=== PATIENT | female | born 1985 | race Caucasian/White ===

== ENCOUNTER 2016-12-31 11:02 | Day surgery (SDC) | payer OTHER ==
[~2016-12-31] VITALS: Ht 162.6 cm; Wt 67.0 kg
[~2016-12-31 11:02] MED LIST: NONE PER PT
[2016-12-31 11:38] VITALS: BP 99/64
[2016-12-31] MEDS ORDERED: LACTATED RINGERS 1,000 ML IV SCH (11:40)
[2016-12-31] MEDS ORDERED: PRENATAL VITAMINS (12:00)
[2016-12-31] MEDS ORDERED: OXYTOCIN 10 UNITS/ML, 1ML ONE (12:37)
[2016-12-31] MEDS ORDERED: SILVER NITRATE STICK TP ONE (12:38)
[2016-12-31] MEDS ORDERED: MISOPROSTOL 200 MCG TABLET ONE (12:38)
[2016-12-31] MEDS ORDERED: BUPIVACAINE/PF-EPI 0.25% 1:200K ONE (12:38)
[2016-12-31] MEDS ORDERED: METHYLERGONOVINE 0.2 MG/ML IM ONE (12:38)
[2016-12-31] MEDS ORDERED: MIDAZOLAM 1 MG/ML, 2ML ONE ×2 (12:45)
[2016-12-31] MEDS ORDERED: FENTANYL PF 100 MCG/2ML ONE ×2 (12:45)
[2016-12-31] MEDS ORDERED: DEXAMETHASONE 4 MG/ML, 1ML ONE (12:56)
[2016-12-31] MEDS ORDERED: ONDANSETRON 2MG/ML, 2ML ONE (12:56)
[2016-12-31] MEDS ORDERED: METOCLOPRAMIDE 5 MG/ML, 2ML ONE (12:56)
[2016-12-31] MEDS ORDERED: CEFAZOLIN 1,000 MG ONE (12:56)
[2016-12-31] MEDS ORDERED: KETOROLAC 30 MG/1 ML ONE (12:56)
[2016-12-31] MEDS ORDERED: HYDROmorphone 1 MG/ML, 1ML IV PRN (13:30)
[2016-12-31] MEDS ORDERED: ACETAMINOPHEN 325 MG TABLET PO PRN (13:30)
[2016-12-31] MEDS ORDERED: OXYcodone 5 MG/5 ML ORAL.SOL UDC PO PRN (13:30)
[2016-12-31] MEDS ORDERED: PROMETHAZINE 25 MG/ML, 1ML IV PRN (13:30)
[2016-12-31] MEDS ORDERED: MEPERIDINE/PF 25MG/0.5ML IVPush PRN (13:30)
[2016-12-31] MEDS ORDERED: FENTANYL PF 100 MCG/2ML IV PRN (13:30)
[2016-12-31] MEDS ORDERED: ONDANSETRON 2MG/ML, 2ML IVPush PRN (13:30)
[2016-12-31 13:55] VITALS: BP 97/54
== END 2016-12-31 16:00 | disposition home or self-care (01) ==
LOC: OUT 11:02
PROVIDERS: ATTEND Obstetrics & Gynecology Female Pelvic Medicine and Reconstructive Surgery
DX: O02.1 Missed abortion (principal); Z3A.01 Less than 8 weeks gestation of pregnancy
CPT/HCPCS: 36415; 59820; 86850; 86900; 88305; J0690; J1100; J1885; J2405; J2765; J2790; J7120; J2250; J3010; J2210; J2590